=== PATIENT | female | born 1985 | race Caucasian/White ===

== ENCOUNTER 2019-04-08 12:15 | Emergency (ER) | payer SELFPAY ==
--- NOTE | 2019-04-08 12:37 | EDM.PDOC ---
ED HPI GENERAL MEDICAL PROBLEM - General Chief Complaint: General Stated Complaint: FLU SYMPTOMS Time Seen by Provider: 04/08/19 12:19 Source of Information: Reports: Patient History Limitations: Reports: No Limitations - History of Present Illness INITIAL COMMENTS - FREE TEXT/NARRATIVE: HISTORY AND PHYSICAL: History of present illness: Patient is a 33-year-old female who presents to the ED today with concern of sore throat and cough x2 to 3 days. Patient states that her and her son have both had influenza and strep throat over the past 2 weeks. Patient denies any health history or any other symptoms or concerns. Patient denies fever, chills, chest pain, shortness of breath. Denies headache, neck stiff ness, change in vision, syncope, or near syncope. Denies nausea, vomiting, abdominal pain, diarrhea, constipation, or dysuria. Has not noted any blood in urine or stool. Patient has been eating and drinking appropriately. Review of systems: As per history of present illness and below otherwise all systems reviewed and negative. Past medical history: As per history of present illness and as reviewed below otherwise noncontributory. Surgical history: As per history of present illness and as reviewed below otherwise noncontributory. Social history: See social history for further information Family history: As per history of present illness and as reviewed below otherwise noncontributory. Physical exam: General: Patient is alert, oriented, and in no acute distress. Patient sitting comfortably on exam table. HEENT: Atraumatic, normocephalic, pupils equal and reactive bilaterally, negative for conjunctival pallor or scleral icterus, mucous membranes moist, TMs normal bilaterally, throat is mildly erythematous without exudate, tonsils equal and uvula midline, neck supple, nontender, trachea midline. No drooling or trismus noted. No meningeal signs. No hot potato voice noted. Lungs: Clear to auscultation, breath sounds equal bilaterally, chest nontender. Heart: S1S2, regular rate and rhythm without overt murmur Abdomen: Soft, nondistended, nontender. Negative for masses or hepatosplenomegaly. Negative for costovertebral tenderness. Pelvis: Stable nontender. Genitourinary: Deferred. Rectal: Deferred. Skin: Intact, warm, dry. No lesions or rashes noted. Extremities: Atraumatic, negative for cords or calf pain. Neurovascular unremarkable. Neuro: Awake, alert, oriented. Cranial nerves II through XII unremarkable. Cerebellum unremarkable. Motor and sensory unremarkable throughout. Exam nonfocal. Notes: Discussed importance for follow-up with primary care provider. Voices understanding and is agreeable to plan of care. Denies any further questions or concerns at this time. Diagnostics: Influenza Strep Therapeutics: None Prescription: None Impression: Flu-like symptoms Pharyngitis Plan: 1. You can use ibuprofen as directed for pain and discomfort. 2. Follow-up with your primary care provider as discussed. Return to the ED as needed and as discussed. Definitive disposition and diagnosis as appropriate pending reevaluation and review of above. Throat Pain Score (Numeric/FACES): 6 - Related Data Allergies Allergy/AdvReac Type Severity Reaction Status Date / Time acetaminophen [From Tylenol] Allergy Anaphylactic Verified 04/08/19 12:26 Shock Home Meds: Home Meds . [No Known Home Meds] 04/08/19 [History] Past Medical History - Infectious Disease History Infectious Disease History: Reports: Chicken Pox - Past Surgical History GI Surgical History: Reports: Cholecystectomy Female Surgical History: Reports: Section Social & Family History - Family History Family Medical History: Noncontributory - Tobacco Use Smoking Status *Q: Never Smoker - Caffeine Use Caffeine Use: Reports: Coffee, Tea - Recreational Drug Use Recreational Drug Use: No ED ROS GENERAL - Review of Systems Review Of Systems: Comprehensive ROS is negative, except as noted in HPI. ED EXAM, GENERAL - Physical Exam Exam: See Below (see dictation) Course - Vital Signs Last Recorded V/S: Last Vital Signs Temp Pulse 77 04/08/19 12:27 Resp 17 04/08/19 12:27 BP Pulse Ox 96 04/08/19 12:27 - Orders/Labs/Meds Orders: Active Orders 24 hr Category Date Time Status CULTURE STREP A CONFIRMATION [] Stat Lab 04/08/19 12:30 Results STREP SCRN A RAPID W CULT CONF [] Stat Lab 04/08/19 12:30 Results Departure - Departure Time of Disposition: 13:42 Disposition: Home, Self-Care 01 Clinical Impression: Flu-like symptoms Pharyngitis Qualifiers: Pharyngitis/tonsillitis etiology: unspecified etiology Qualified Code(s): J02.9 - Acute pharyngitis, unspecified - Discharge Information Referrals: Maninder Summers NP [Primary Care Provider] - Forms: ED Department Discharge Additional Instructions: The following information is given to patients seen in the emergency department who are being discharged to home. This information is to outline your options for follow-up care. We provide all patients seen in our emergency department with a follow-up referral. The need for follow-up, as well as the timing and circumstances, are variable depending upon the specifics of your emergency department visit. If you don't have a primary care physician on staff, we will provide you with a referral. We always advise you to contact your personal physician following an emergency department visit to inform them of the circumstance of the visit and for follow-up with them and/or the need for any referrals to a consulting specialist. The emergency department will also refer you to a specialist when appropriate. This referral assures that you have the opportunity for follow-up care with a specialist. All of these measure are taken in an effort to provide you with optimal care, which includes your follow-up. Under all circumstances we always encourage you to contact your private physician who remains a resource for coordinating your care. When calling for follow-up care, please make the office aware that this follow-up is from your recent emergency room visit. If for any reason you are refused follow-up, please contact the [facility] Emergency Department at and asked to speak to the emergency department charge nurse. [facility] [address] [place] [id number] [place] [address] 1. You can use ibuprofen as directed for pain and discomfort. 2. Follow-up with your primary care provider as discussed. Return to the ED as needed and as discussed. Sepsis Event Note - Evaluation Sepsis Screening Result: No Definite Risk - Focused Exam Vital Signs: Vital Signs Pulse Resp Pulse Ox 04/08/19 12:27 77 17 96 Date Exam was Performed: 04/08/19 Time Exam was Performed: 13:41 - My Orders Last 24 Hours: My Active Orders 04/08/19 12:30 CULTURE STREP A CONFIRMATION [RM] Stat STREP SCRN A RAPID W CULT CONF [RM] Stat - Assessment/Plan Last 24 Hours: My Active Orders 04/08/19 12:30 CULTURE STREP A CONFIRMATION [RM] Stat STREP SCRN A RAPID W CULT CONF [] Stat
== END 2019-04-08 13:57 | disposition home or self-care (01) ==
LOC: MW.ED 12:15
DX: J02.9 Acute pharyngitis, unspecified (principal); Z88.6 Allergy status to analgesic agent
CPT/HCPCS: 87081; 87804; 87880-QW; 99283

== ENCOUNTER 2019-05-28 17:23 | Emergency (ER) | payer SELFPAY ==
[2019-05-28] MEDS ORDERED: methylPREDNISolone Sodium Succinate 125 MG/2 ML SDV IM ONE (17:42)
--- NOTE | 2019-05-28 17:45 | EDM.PDOC ---
ED HPI GENERAL MEDICAL PROBLEM - General Chief Complaint: Eye Problems Stated Complaint: RIGHT EYE SWOLLEN Time Seen by Provider: 05/28/19 17:42 Source of Information: Reports: Patient History Limitations: Reports: No Limitations - History of Present Illness INITIAL COMMENTS - FREE TEXT/NARRATIVE: HISTORY AND PHYSICAL: History of present illness: Patient is a 33-year-old female who presents to the emergency room with complaints of soft tissue swelling around her right eyebrow. Patient states she was getting her eyebrows waxed and shortly after noticed some soft tissue swelling at the waxing site. Patient is getting in 2 hours and is concerned she is having an allergic reaction to the wax. Review of systems: As per history of present illness and below otherwise all systems reviewed and negative. Past medical history: As per history of present illness and as reviewed below otherwise noncontributory. Surgical history: As per history of present illness and as reviewed below otherwise noncontributory. Social history: See social history for further information Family history: As per history of present illness and as reviewed below otherwise noncontributory. Physical exam: General: Well developed and well nourished 33 year old female. Alert and appropriate for age. Nontoxic-appearing and in no acute distress. HEENT: Atraumatic, normocephalic, pupils equal and reactive bilaterally, negative for conjunctival pallor or scleral icterus, mucous membranes moist, TMs normal bilaterally, throat clear, neck supple, nontender, trachea midline. No drooling or trismus noted. No meningeal signs. No hot potato voice noted. Lungs: Clear to auscultation, breath sounds equal bilaterally, chest nontender. Heart: S1S2, regular rate and rhythm without overt murmur Abdomen: Soft, nondistended, nontender. Skin: Soft tissue swelling and redness around the right eyebrow. Remaining skin is intact, warm, dry. No lesions or rashes noted. Extremities: Atraumatic, moves all extremities per self without difficulty or deficits, negative for cords or calf pain. Neurovascular unremarkable. Neuro: Awake, alert, oriented. Cranial nerves II through XII unremarkable. Cerebellum unremarkable. Motor and sensory unremarkable throughout. Exam nonfocal. Notes: Patient has no facial muscle/nerve abnormalities. Appears to have a contact reaction to the wax. Supportive care measures were reviewed and discussed. Voices understanding and is agreeable to plan of care. Denies any further questions or concerns at this time. Diagnostics: None Therapeutics: Solumedrol IM Prescription: None Impression: Contact dermatitis Plan: 1. While symptomatic continue to routinely take Benadryl 50mg every 4-6 hours. Cool compresses may help with swelling. 2. You may use topical calamine lotion, cool tempid oatmeal baths, Aveeno bath/ lotions. 3. Please follow up with your Primary care doctor as we discussed. Return to the ED as needed and as discussed. Definitive disposition and diagnosis as appropriate pending reevaluation and review of above. right eyelid Pain Score (Numeric/FACES): 4 - Related Data Allergies Allergy/AdvReac Type Severity Reaction Status Date / Time acetaminophen [From Tylenol] Allergy Anaphylactic Verified 05/28/19 17:36 Shock Home Meds: Home Meds . [No Known Home Meds] 04/08/19 [History] Past Medical History - Past Health History Medical/Surgical History: Denies Medical/Surgical History - Infectious Disease History Infectious Disease History: Reports: Chicken Pox - Past Surgical History GI Surgical History: Reports: Cholecystectomy Female Surgical History: Reports: Section Social & Family History - Family History Family Medical History: Noncontributory - Tobacco Use Smoking Status *Q: Never Smoker - Caffeine Use Caffeine Use: Reports: Coffee, Tea - Recreational Drug Use Recreational Drug Use: No ED ROS GENERAL - Review of Systems Review Of Systems: Comprehensive ROS is negative, except as noted in HPI. ED EXAM GENERAL W FULL EYE - Physical Exam Exam: See Below (See dictation) Course - Vital Signs Last Recorded V/S: Last Vital Signs Temp 98.9 F 05/28/19 17:34 Pulse 94 05/28/19 17:34 Resp 18 05/28/19 17:34 BP 120/91 H 05/28/19 17:34 Pulse Ox 96 05/28/19 17:34 - Orders/Labs/Meds Meds: Medications Discontinued Medications Generic Name Dose Route Start Last Admin Trade Name Freq PRN Reason Stop Dose Admin Methylprednisolone Sodium Succinate 125 mg 05/28/19 17:42 05/28/19 17:48 Solu-Medrol IM 05/28/19 17:43 125 mg ONETIME ONE Administration Departure - Departure Time of Disposition: 17:44 Disposition: Home, Self-Care 01 Clinical Impression: Contact dermatitis Qualifiers: Contact dermatitis type: irritant Contact dermatitis trigger: other trigger Qualified Code(s): L24.89 - Irritant contact dermatitis due to other agents; L24.8 - Irritant contact dermatitis due to other agents - Discharge Information Instructions: Contact Dermatitis, [id number] Referrals: Maninder Summers NP [Primary Care Provider] - Forms: ED Department Discharge Additional Instructions: The following information is given to patients seen in the emergency department who are being discharged to home. This information is to outline your options for follow-up care. We provide all patients seen in our emergency department with a follow-up referral. The need for follow-up, as well as the timing and circumstances, are variable depending upon the specifics of your emergency department visit. If you don't have a primary care physician on staff, we will provide you with a referral. We always advise you to contact your personal physician following an emergency department visit to inform them of the circumstance of the visit and for follow-up with them and/or the need for any referrals to a consulting specialist. The emergency department will also refer you to a specialist when appropriate. This referral assures that you have the opportunity for follow-up care with a specialist. All of these measure are taken in an effort to provide you with optimal care, which includes your follow-up. Under all circumstances we always encourage you to contact your private physician who remains a resource for coordinating your care. When calling for follow-up care, please make the office aware that this follow-up is from your recent emergency room visit. If for any reason you are refused follow-up, please contact the [facility] Emergency Department at and asked to speak to the emergency department charge nurse. [facility] [address] [place] [address] [id number] [address] [address] 1. While symptomatic continue to routinely take Benadryl 50 mg every 4-6 hours. Cool compresses may help with swelling. 2. You may use topical calamine lotion, cool tempid oatmeal baths, Aveeno bath/ lotions. 3. Please follow up with your Primary care doctor as we discussed. Return to the ED as needed and as discussed. Sepsis Event Note - Evaluation Sepsis Screening Result: No Definite Risk - Focused Exam Vital Signs: Vital Signs Temp Pulse Resp BP Pulse Ox 05/28/19 17:34 98.9 F 94 18 120/91 H 96 Date Exam was Performed: 05/28/19 Time Exam was Performed: 17:53
== END 2019-05-28 17:55 | disposition home or self-care (01) ==
LOC: MW.ED 17:23
DX: L24.89 Irritant contact dermatitis due to other agents (principal); Z88.6 Allergy status to analgesic agent
CPT/HCPCS: 96372; 99283; J2930; 99282

== ENCOUNTER 2019-06-03 12:58 | Inpatient (IN) | payer OTHER ==
[2019-06-03] MEDS ORDERED: Sodium Chloride 0.9% 1,000 ML IV ONE (13:05)
[2019-06-03] MEDS: oxyCODONE 5 MG Tab PO PRN ×2 (13:57→20:55)
[2019-06-03] MEDS ORDERED: cefTRIAXone 1 GM in Premix Bag 1 BAG IV SCH (14:00)
[2019-06-03] MEDS: Ibuprofen 400 MG Tab PO PRN (14:25)
--- NOTE | 2019-06-03 15:45 | PCM.HP.2 ---
H&P History of Present Illness - General Date of Service: 06/03/19 Admit Problem/Dx: Admission Diagnosis/Problem Admission Diagnosis/Problem Pyelonephritis - History of Present Illness Initial Comments - Free Text/Narative: 33 yo female who presents with one day history of fevers, chills, dysuria and bilateral flank pain. She was seen in [facility]'s clinic and noted to have a UTI on UA with leukocytosis of 15,000. A direct admission was arranged. She reports a history of pyelonephritis six years ago while she was . - Related Data Allergies/Adverse Reactions: Allergies Allergy/AdvReac Type Severity Reaction Status Date / Time acetaminophen [From Tylenol] Allergy Anaphylactic Verified 06/03/19 13:24 Shock Home Medications: Home Meds . [No Known Home Meds] 04/08/19 [History] Past Medical History - Past Health History Medical/Surgical History: Denies Medical/Surgical History - Infectious Disease History Infectious Disease History: Reports: Chicken Pox - Past Surgical History GI Surgical History: Reports: Cholecystectomy Female Surgical History: Reports: Section Social & Family History - Family History Family Medical History: Noncontributory - Tobacco Use Smoking Status *Q: Never Smoker - Caffeine Use Caffeine Use: Reports: None - Recreational Drug Use Recreational Drug Use: No H&P Review of Systems - Review of Systems: Review Of Systems: Comprehensive ROS is negative, except as noted in HPI. Exam - Exam Exam: See Below - Vital Signs Vital Signs: Last Vital Signs Temp 38.7 C H 06/03/19 14:25 Pulse 82 06/03/19 13:25 Resp 18 06/03/19 13:25 BP 133/68 06/03/19 13:25 Pulse Ox 98 06/03/19 13:25 Weight: 99 kg - Exam General: Alert, Oriented HEENT: Conjunctiva Clear, Mucosa Moist & Jeddo Lungs: Clear to Auscultation, Normal Respiratory Effort Cardiovascular: Regular Rate, Regular Rhythm GI/Abdominal Exam: Normal Bowel Sounds, Soft, No Distention Back Exam: CVA Tenderness (L), CVA Tenderness (R) Extremities: Non-Tender, No Pedal Edema Skin: Warm, Dry, Intact Neurological: No: Focal Deficit - Patient Data Lab Results Last 24 hrs: Laboratory Results - last 24 hr 06/03/19 06/03/19 Range/Units 12:12 13:43 Lactate 1.2 (0.20-2.00) mmol/L Urine HCG, Qual NEGATIVE (NEGATIVE) [place] Results Last 24 hrs: Microbiology 06/03/19 13:43 Anaerobic Blood Culture - Final Blood - Venous - Lab Draw 06/03/19 12:12 Anaerobic Blood Culture - Final Blood - Venous Sepsis Event Note - Focused Exam Vital Signs: Vital Signs Temp Temp Pulse Resp BP Pulse Ox 06/03/19 14:25 38.7 C H 06/03/19 13:25 37.7 C 82 18 133/68 98 Date Exam was Performed: 06/03/19 Time Exam was Performed: 15:40 Problem List Initiated/Reviewed/Updated: Yes Orders Last 24hrs: Active Orders 24 hr Category Date Time Status Patient Status [ADT] Routine ADT 06/03/19 13:42 Active Antiembolic Devices [RC] PER UNIT ROUTINE Care 06/03/19 15:39 Ordered Influenza Vaccine Charge [RC] .DISCHARGE Care 06/03/19 14:14 Active Oxygen Therapy [RC] PRN Care 06/03/19 15:39 Ordered Up ad Ariela [RC] ASDIRECTED Care 06/03/19 15:38 Ordered VTE/DVT Education [RC] PER UNIT ROUTINE Care 06/03/19 15:39 Ordered Vital Signs [RC] Q4H Care 06/03/19 15:39 Ordered Regular Diet [DIET] Diet 06/03/19 Dinner Active Retroperitoneal Ltd [US] Routine Exams 06/03/19 15:40 Ordered BASIC METABOLIC PANEL,BMP [CHEM] AM Lab 06/04/19 05:11 Ordered CBC WITH AUTO DIFF [HEME] AM Lab 06/04/19 05:11 Ordered CULTURE BLOOD [BC] Stat Lab 06/03/19 12:12 Results CULTURE BLOOD [BC] Stat Lab 06/03/19 13:43 Results FLU Vacc [id number](6MOS+)/PF [Fluzone Quad Med 06/04/19 14:30 Once Syringe] 60 mcg IM .ONCE ONE Ibuprofen [Motrin] Med 06/03/19 13:42 Active 400 mg PO Q6H PRN Ondansetron [Zofran] Med 06/03/19 15:38 Ordered 4 mg IVPUSH Q4H PRN Sodium Chloride 0.9% [Normal Saline] 1,000 ml Med 06/03/19 13:15 Active IV ASDIRECTED cefTRIAXone [Rocephin in Dextrose,Iso-Osm 1 GM/50 ML] 1 Med 06/03/19 14:00 Active gm Premix Bag 1 bag IV Q24H oxyCODONE Med 06/03/19 13:44 Active 5 mg PO Q4H PRN Blood Culture x2 Reflex Set [OM.PC] Stat Oth 06/03/19 13:08 Ordered Sequential Compression Device [OM.PC] Per Unit Routine Oth 06/03/19 15:39 Ordered Resuscitation Status Routine Resus Stat 06/03/19 15:38 Ordered Medication Orders Ceftriaxone Sodium/Dextrose 1 (gm/ Premix) 50 mls @ 100 mls/hr IV Q24H NISHI Last Admin: 06/03/19 13:59 Dose: 100 mls/hr Sodium Chloride (Normal Saline) 1,000 mls @ 125 mls/hr IV ASDIRECTED NISHI Ibuprofen (Motrin) 400 mg PO Q6H PRN PRN Reason: Pain Last Admin: 06/03/19 14:25 Dose: 400 mg Influenza Virus Vaccine (Fluzone Quad [id number] Syringe) 60 mcg IM .ONCE ONE Stop: 06/04/19 14:31 Ondansetron HCl (Zofran) 4 mg IVPUSH Q4H PRN PRN Reason: Nausea Oxycodone HCl (Oxycodone) 5 mg PO Q4H PRN PRN Reason: Pain Last Admin: 06/03/19 13:57 Dose: 5 mg Assessment/Plan Comment:: 33 yo female admitted for pyelonephritis with sepsis. Patient has received IV fluids and has improvement in her heart rate. Patient is feeling better. We will continue IV fluid resuscitation. We will treat her pyelonephritis with Rocephin. Retroperitoneal ultrasound has been ordered. Blood and urine cultures pending.
--- NOTE | 2019-06-03 17:20 | US ---
Renal ultrasound: Multiple real-time images of the kidneys were obtained. Comparison: No previous imaging. Findings: Right kidney shows mild hydronephrosis with dilatation of the collecting system. Left kidney appears within normal limits. Large fluid-filled mass which appears complicated arises out of the pelvis. This abnormality measures at least 21 cm x 13.1 cm. Mural nodules are seen within this abnormality. Findings most likely arises in the right ovary. Left ovary is seen which appears separate from this finding. Measurements: Right kidney length: 11.6 cm Left kidney length: 10.4 cm Impression: 1. Mild right-sided hydronephrosis. This finding is most likely due to compression of the right ureter from a large fluid-filled mass arising out of the pelvis extending into the abdomen. Mass measures at least 21 cm x 13.1 cm. This fluid-filled mass is complicated with mural nodules. Ovarian carcinoma needs to be excluded. 2. No ascites seen at this time. 3. Left kidney appears unremarkable. Left ovary appears within normal limits. Diagnostic code #9 Study was dictated in [place] Standard Time
[2019-06-03] MEDS: Sodium Chloride 0.9% 1,000 ML IV SCH (19:26)
--- NOTE | 2019-06-03 19:45 | PCM.SN ---
- Free Text/Narrative Note: Retroperitoneal showed mild hydronephrosis and possible compression of right ureter due to large fluid filled mass. CT scan of abdomen and pelvis is ordered. I have called Dr. Diaz who will look at CT scan to see if any intervention is needed tonight. I informed patient of results of ultrasound and she is agreeable to current plan. Will treat with meropenem due to findings of possible obstruction.
[2019-06-03] MEDS ORDERED: Meropenem Premix 50 ML IV ONE (20:53)
[2019-06-03] MEDS: Meropenem 1 GM in Sodium Chloride 0.9% 100 ML IV SCH ×2 (20:57→21:05)
--- NOTE | 2019-06-03 20:58 | CT ---
CT abdomen and pelvis Technique: Multiple axial sections were obtained from above the dome of the diaphragm inferiorly through the pubic symphysis. Small amount of contrast is seen within the collecting systems of both kidneys. No oral contrast is noted. Findings: Dilated right renal pelvis and proximal right ureter are seen. Dilatation stops where the ureter crosses the psoas muscle which likely relates to mass-effect from the fluid-filled mass upon the right ureter. No left-sided ureteral dilatation is seen. Visualized lung bases show nothing acute. Liver shows no focal parenchymal abnormality. Surgical clips are seen from prior cholecystectomy. Small hiatal hernia seen. Spleen appears normal. Adrenal glands show no nodule. Pancreas shows no discrete abnormality. Aorta shows no aneurysm. Large fluid-filled mass is seen which arises from the pelvis directly above the uterus and extends in a craniocaudal measurement of 22.1 cm. Greatest AP dimension is 12.8 cm in greatest transverse dimension is 20.5 cm. No additional pelvic abnormality is appreciated. No bowel dilatation is seen. Appendix not visualized with certainty. No ascites is seen. No inflammatory change is noted. Bone window settings were reviewed which appear within normal limits for the patient's age. Small fat-containing umbilical hernia is noted. Impression: 1. Large fluid-filled mass arising out of the pelvis and extending into the abdomen. Measurements as noted above. 2. Mildly dilated right renal pelvis and right proximal ureter which stops where the ureter crosses the psoas muscle which is caused by obstruction from the fluid-filled mass. 3. Other findings believed to be incidental as noted above. Note: As mentioned on ultrasound report, ovarian carcinoma needs to be excluded as this cyst is slightly complicated. Diagnostic code #9 This report was dictated in [place] Standard Time
[2019-06-03] MEDS ORDERED: Ketorolac 30 MG/ML SDV IVPUSH ONE (22:13)
[2019-06-03] MEDS: Pantoprazole 40 MG in Sodium Chloride 0.9% 10 ML IV SCH (22:19)
--- NOTE | 2019-06-03 23:07 | CT ---
INDICATION: Headache. Blurred vision TECHNIQUE: CT head without contrast. COMPARISON: None available FINDINGS: The study is mildly limited by artifact. The ventricles and sulci are within normal limits. There is no mass effect or midline shift. There is no loss of ma-white differentiation. There is an ill-defined area of increased attenuation in the medial right cerebellum on image 19 which could be artifactual. There is no evidence of a gross acute extra-axial hemorrhage. No acute calvarial fracture is seen. There is a mucosal retention cyst or polyp in the lateral recess of the left sphenoid sinus. The mastoid air cells are clear. The visualized orbits are within normal limits. IMPRESSION: No evidence of a gross acute extra-axial hemorrhage, mass effect or loss of ma-white differentiation. An ill-defined focus of increased attenuation in the medial right cerebellum could be artifactual, however, consider a short-term follow-up study in 4-8 hours, if clinically indicated. Dictated by Lito Dietz MD @ 06/03/2019 11:06:29 PM Please note that all CT scans at this facility use dose modulation, iterative reconstruction, and/or weight-based dosing when appropriate to reduce radiation dose to as low as reasonably achievable. Dictated by: Lito Dietz MD @ 06/03/2019 23:06:39 (Electronically Signed)
--- NOTE | 2019-06-04 03:11 | CONS ---
DATE OF CONSULTATION: DATE OF : 1985 PRIMARY CARE PHYSICIAN: None PCP HISTORY OF PRESENT ILLNESS: A 33-year-old. She was admitted to the hospital today. Primary complaint, fever, abdominal pain, back pain. Her temperature at 2:25 p.m. was 101.7. Her UA showed 50 to 60 white blood cells per high-power field, 3+ [place] [address]. Blood pressure is normal. Lactic acid is 1.2. PHYSICAL EXAMINATION: GENERAL: She is alert. She is oriented. ABDOMEN: Distended. I reviewed her CT scan which shows 21 cm right ovarian cystic mass with nodules inside, suggestive of malignancy, that has compressed the right ureter to cause right-sided hydronephrosis and hydroureter. With the CT scan, she received some dye. There was prompt excretion of the dye on both sides, equal in distribution. Abdominal exam shows distended abdomen. The mass is palpable in the abdomen. DIAGNOSES: Right large ovarian cyst, compression of the left ureter plus left-sided hydronephrosis, and urinary tract infection. RECOMMENDATION: She needs to be transferred to see [facility] Oncology. be done tomorrow. She will need surgery and she will also need right ureteral stent if the surgery is not within the next 3, maybe 4 days. MONA / ARACELY /[id number]
[2019-06-04] MEDS ORDERED: Meropenem Premix 50 ML IV ONE (04:15)
[2019-06-04] MEDS: oxyCODONE 5 MG Tab PO PRN (04:22)
[2019-06-04] MEDS: Meropenem 1 GM in Sodium Chloride 0.9% 100 ML IV SCH ×2 (04:23→15:26)
[2019-06-04] MEDS: Sodium Chloride 0.9% 1,000 ML IV SCH (04:57)
[2019-06-04] MEDS: Ondansetron 4 MG/2 ML SDV IVPUSH PRN ×2 (05:04→09:21)
[2019-06-04 06:40] LABS: BLOOD UREA NITROGEN,BUN 12 mg/dL (7.0-18.0); CARBON DIOXIDE,CO2 24.6 mmol/L (21.0-32.0); CHLORIDE,CL 104 mmol/L (98-107); GLUCOSE RANDOM 91 mg/dL (74-106); POTASSIUM,K 3.9 mmol/L (3.5-5.1); SODIUM,NA 138 mmol/L (136-145)
[2019-06-04] MEDS: Ibuprofen 400 MG Tab PO PRN (07:38)
--- NOTE | 2019-06-04 09:05 | PCM.DCSUM1 ---
Discharge Summary - Hospital Course Free Text/Narrative:: 33 y/o female who presented to her PCP's clinic for back pain and found to have a UTI with WBC 15K. Admitted for pyelonephritis started on Meropenem and then found to have an ovarian cyst measuring approximately 22cm x 20 cm with compression of right ureter causing right hydronephrosis. Consulted with Dr. Diaz, Urology who recommended transferring for further evaluation of pelvic mass and possible stenting of right ureter due to hydronephrosis. In addition, she was complaining of blurry vision and CT head was performed which was negative for masses but there was an area of attenuation on right cerebellum believed to be artifact. Repeat CT head was negative for masses and previous artifact was not seen. Forwarded imaging to [facility]. Spoke with Dr. Tovar, JULIAN about the case and accepted the patient on 06/04/19. Dr. Rebolledo was also made aware of the patient. - Discharge Data Discharge Date: 06/04/19 Discharge Disposition: DC/Tfer to Acute Hospital 02 Condition: Good - Referral to Home Health Primary Care Physician: PCP None - Discharge Plan Home Medications: Home Meds . [No Known Home Meds] 04/08/19 [History] Referrals: Mana Babcock, LENNY [Nurse Practitioner] - - Discharge Summary/Plan Comment DC Time >30 min.: No - Patient Data Vitals - Most Recent: Last Vital Signs Temp 36.7 C 06/04/19 08:00 Pulse 84 06/04/19 08:00 Resp 15 06/04/19 08:00 BP 109/56 L 06/04/19 08:00 Pulse Ox 97 06/04/19 04:00 Weight - Most Recent: 99 kg I&O - Last 24 hours: Intake & Output 06/03/19 06/04/19 06/04/19 22:59 06:59 14:59 Intake Total 200 2286 Output Total 400 1100 Balance -200 1186 Lab Results - Last 24 hrs: Laboratory Results - last 24 hr 06/03/19 06/03/19 06/04/19 Range/Units 12:12 13:43 05:53 WBC 5.84 (4.0-11.0) K/uL RBC 4.58 (4.30-5.90) M/uL Hgb 12.7 (12.0-16.0) g/dL Hct 38.9 (36.0-46.0) % MCV 84.9 (80.0-98.0) fL MCH 27.7 (27.0-32.0) pg MCHC 32.6 (31.0-37.0) g/dL RDW Std Deviation 44.0 (28.0-62.0) fl RDW Coeff of Codi 15 (11.0-15.0) % Plt Count 184 (150-400) K/uL MPV 11.60 (7.40-12.00) fL Neut % (Auto) 78.1 (48.0-80.0) % Lymph % (Auto) 11.6 L (16.0-40.0) % [place] % (Auto) 9.8 (0.0-15.0) % Eos % (Auto) 0.2 (0.0-7.0) % Baso % (Auto) 0.3 (0.0-1.5) % Neut # (Auto) 4.6 (1.4-5.7) K/uL Lymph # (Auto) 0.7 (0.6-2.4) K/uL [place] # (Auto) 0.6 (0.0-0.8) K/uL Eos # (Auto) 0.0 (0.0-0.7) K/uL Baso # (Auto) 0.0 (0.0-0.1) K/uL Lactate 1.2 (0.20-2.00) mmol/L Sodium (136-145) mmol/L Potassium (3.5-5.1) mmol/L Chloride (98-107) mmol/L Carbon Dioxide (21.0-32.0) mmol/L BUN (7.0-18.0) mg/dL Creatinine (0.6-1.0) mg/dL Est Cr Clr Drug Dosing mL/min Estimated GFR (MDRD) ml/min Glucose (74-106) mg/dL Calcium (8.5-10.1) mg/dL CA 125 Antigen Urine HCG, Qual NEGATIVE (NEGATIVE) 06/04/19 Range/Units 05:53 WBC (4.0-11.0) K/uL RBC (4.30-5.90) M/uL Hgb (12.0-16.0) g/dL Hct (36.0-46.0) % MCV (80.0-98.0) fL MCH (27.0-32.0) pg MCHC (31.0-37.0) g/dL RDW Std Deviation (28.0-62.0) fl RDW Coeff of Codi (11.0-15.0) % Plt Count (150-400) K/uL MPV (7.40-12.00) fL Neut % (Auto) (48.0-80.0) % Lymph % (Auto) (16.0-40.0) % [place] % (Auto) (0.0-15.0) % Eos % (Auto) (0.0-7.0) % Baso % (Auto) (0.0-1.5) % Neut # (Auto) (1.4-5.7) K/uL Lymph # (Auto) (0.6-2.4) K/uL [place] # (Auto) (0.0-0.8) K/uL Eos # (Auto) (0.0-0.7) K/uL Baso # (Auto) (0.0-0.1) K/uL Lactate (0.20-2.00) mmol/L Sodium 138 (136-145) mmol/L Potassium 3.9 (3.5-5.1) mmol/L Chloride 104 (98-107) mmol/L Carbon Dioxide 24.6 (21.0-32.0) mmol/L BUN 12 (7.0-18.0) mg/dL Creatinine 0.8 (0.6-1.0) mg/dL Est Cr Clr Drug Dosing 95.45 mL/min Estimated GFR (MDRD) > 60.0 ml/min Glucose 91 (74-106) mg/dL Calcium 8.1 L (8.5-10.1) mg/dL CA 125 Antigen Cancelled Urine HCG, Qual (NEGATIVE) TERA Results - Last 24 hrs: Microbiology 06/03/19 13:43 Anaerobic Blood Culture - Final Blood - Venous - Lab Draw 06/03/19 12:12 Anaerobic Blood Culture - Final Blood - Venous Med Orders - Current: Current Medications Sodium Chloride (Normal Saline) 1,000 mls @ 125 mls/hr IV ASDIRECTED NISHI Last Admin: 06/04/19 04:57 Dose: 125 mls/hr Meropenem 1 gm/ Sodium (Chloride) 100 mls @ 200 mls/hr IV Q8H [facility] Last Admin: 06/04/19 04:23 Dose: Not Given Pantoprazole Sodium 40 mg/ (Sodium Chloride) 10 mls @ 300 mls/hr IV DAILY NISHI Last Admin: 06/03/19 22:19 Dose: 300 mls/hr Ibuprofen (Motrin) 400 mg PO Q6H PRN PRN Reason: Pain Last Admin: 06/04/19 07:38 Dose: 400 mg Influenza Virus Vaccine (Fluzone Quad [id number] Syringe) 60 mcg IM .ONCE ONE Stop: 06/04/19 14:31 Ondansetron HCl (Zofran) 4 mg IVPUSH Q4H PRN PRN Reason: Nausea Last Admin: 06/04/19 05:04 Dose: 4 mg Oxycodone HCl (Oxycodone) 5 mg PO Q4H PRN PRN Reason: Pain Last Admin: 06/04/19 04:22 Dose: 5 mg Discontinued Medications Ceftriaxone Sodium/Dextrose 1 (gm/ Premix) 50 mls @ 100 mls/hr IV Q24H [facility] Last Admin: 06/03/19 13:59 Dose: 100 mls/hr Sodium Chloride (Normal Saline) 1,000 mls @ 999 mls/hr IV .Bolus ONE Stop: 06/03/19 14:05 Last Admin: 06/03/19 14:04 Dose: 200 mls/hr Meropenem/Sodium Chloride (Meropenem) Confirm Administered Dose 50 mls @ as directed IV .STK-MED ONE Stop: 06/03/19 20:54 Last Admin: 06/03/19 21:04 Dose: 100 mls/hr Meropenem/Sodium Chloride (Meropenem) Confirm Administered Dose 50 mls @ as directed IV .STK-MED ONE Stop: 06/04/19 04:16 Last Admin: 06/04/19 04:23 Dose: 100 mls/hr Influenza Virus Vaccine (Pharmacy To Dose - Influenza Vaccine) 1 each IM ONETIME ONE Stop: 06/03/19 14:15 Last Admin: 06/03/19 16:00 Dose: Not Given Ketorolac Tromethamine (Toradol) 30 mg IVPUSH ONETIME ONE Stop: 06/03/19 22:14 Last Admin: 06/03/19 22:21 Dose: 30 mg
[2019-06-04] MEDS ORDERED: Metoclopramide 10 MG/2 ML SDV IVPUSH STA (09:14)
[2019-06-04] MEDS ORDERED: diphenhydrAMINE 50 MG/ML SDV IVPUSH ONE (09:14)
[2019-06-04] MEDS ORDERED: Ketorolac 15 MG/ML SDV IVPUSH STA (09:14)
[2019-06-04] MEDS: Pantoprazole 40 MG in Sodium Chloride 0.9% 10 ML IV SCH (09:20)
--- NOTE | 2019-06-04 11:07 | CT ---
Head CT Technique: Multiple axial sections through the brain were obtained. Intravenous contrast was not utilized. Comparison: Prior head CT study of 06/03/19 Findings: Ventricles along with basal cisterns and sulci over the convexities are within normal limits for the patient's age. No abnormal parenchymal densities are seen. No evidence of intracranial hemorrhage. No midline shift or mass effect is appreciated. Bone window settings were reviewed. Opacification is seen within the left side of the sphenoid sinus either due to retention cyst or focal mucosal thickening. No acute paranasal sinus findings are seen within the visualized sinuses. Mastoid sinuses show nothing acute. No acute calvarial abnormality is appreciated. Impression: 1. Questioned finding within the right cerebellum on prior study does not persist on current CT exam and therefore was artifact on previous study. 2. No acute intracranial abnormality is appreciated. Diagnostic code #2 This report was dictated in [place] Standard Time
[2019-06-04] MEDS ORDERED: HYDROmorphone 2 MG Tab PO STA (11:49)
[2019-06-04] MEDS ORDERED: FLU Vacc QS2019-20(6MOS+)/PF 60 MCG/0.5 ML SYRINGE IM ONE (14:30)
== END 2019-06-04 11:35 | DRG 690 ==
LOC: UNDOADMIN 12:58 → MW.MS 12:58
PROVIDERS: ADMIT Internal Medicine; ATTEND Internal Medicine
DX: N12 Tubulo-interstitial nephritis, not specified as acute or chronic (principal); N13.5 Crossing vessel and stricture of ureter without hydronephrosis; N13.30 Unspecified hydronephrosis; N83.201 Unspecified ovarian cyst, right side; Z88.8 Allergy status to other drugs, medicaments and biological substances; Z90.49 Acquired absence of other specified parts of digestive tract
CPT/HCPCS: 36415; 70450; 70450-26; 74176; 74176-26; 76775; 76775-26; 80048; 81025; 83605; 85025; 87040; A9270-GY; C9113; J0696; J1200; J1885; J2185; J2405; J2765; J7030; J7050

== ENCOUNTER 2019-06-12 11:59 | Emergency (ER) | payer OTHER ==
[2019-06-12] MEDS ORDERED: HYDROmorphone 2 MG/ML Syringe IVPUSH ONE (12:23)
[2019-06-12] MEDS ORDERED: Ondansetron 4 MG/2 ML SDV IVPUSH ONE (12:23)
[2019-06-12] MEDS ORDERED: Sodium Chloride 0.9% 1,000 ML IV ONE (12:24)
--- NOTE | 2019-06-12 12:28 | EDM.PDOC ---
ED HPI GENERAL MEDICAL PROBLEM - General Chief Complaint: Abdominal Pain Stated Complaint: POST SURGERY COMPLICATIONS Time Seen by Provider: 06/12/19 12:01 Source of Information: Reports: Patient History Limitations: Reports: No Limitations - History of Present Illness INITIAL COMMENTS - FREE TEXT/NARRATIVE: HISTORY OF PRESENT ILLNESS: Patient is a 33-year-old female who presents with abdominal pain. Patient was admitted here on June 02 for pyelonephritis. During that time she had a CT performed which showed a 21 cm right ovarian cystic mass. She was then transferred to [facility] where ASSISTANT PROFESSOR OF DRAMA oncologist removed the mass which was found to be benign. Since Friday she began having abdominal pain. Saw her PCP yesterday who prescribed her antispasmodics for the pain. Pain became worse yesterday afternoon is associated with nausea and now has hematuria. She does not have any stents. Denies any dysuria. No fevers or chills. No chest pain or dyspnea. Denies any emesis. REVIEW OF SYSTEMS: Other than the symptoms associated with the present events, the following is reported with regard to recent health: General: (-) fever. HENT: (-) congestion. Respiratory: (-) cough. Cardiovascular: (-) chest pain. GI: (+) abdominal pain. : (+) urinary complaints. Musculoskeletal: (-) other aches or pains. Endocrine: (-) generalized weakness. Neurological: (-) localized weakness. Skin: (-) rash PAST MEDICAL HISTORY: reviewed as per nursing notes SOCIAL HISTORY: reviewed as per nursing notes, MEDICATIONS: Per nurse's note ALLERGIES: Per nurse's note, reviewed by me PHYSICAL EXAMINATION: GENERALIZED APPEARANCE: well developed, well nourished in moderate distress VITAL SIGNS: Per nurse's note, reviewed by me SKIN: Warm, dry; (-) cyanosis; (-) rash. HEAD: (-) scalp swelling, (-) tenderness. EYES: (-) conjunctival pallor, (-) scleral icterus. ENMT: (-) stridor; mucous membranes moist. NECK: (-) tenderness, (-) stiffness, CHEST AND RESPIRATORY: (-) rales, (-) rhonchi, (-) wheezes; breath sounds equal bilaterally. HEART AND CARDIOVASCULAR: (-) irregularity; (-) murmur, (-) gallop. ABDOMEN AND GI: Soft; incisions c/d/i. Diffuse TTP maximal in midepigastrium and lower abdomen just left of midline. (-) tenderness, (-) guarding, (-) rebound, (-) palpable masses, EXTREMITIES: (-) deformity, (-) edema. NEURO AND PSYCH: Alert. Cranial nerves grossly intact; strength symmetric. gait steady DIAGNOSTICS: CT abd/pelvis: as read by radiologist, reviewed by myself Labs ordered and reviewed US: as read by radiologist, report reviewed by myself. EMERGENCY DEPARTMENT COURSE AND TREATMENT: Patient's condition improved during Emergency Department evaluation. Given IVF, Zofran, Dilaudid. Pt states pain improved. The patient presents to the ED with abdominal pain. After history, physical exam, and diagnostic evaluation, the etiology for the pain is unclear. Laboratory data was ordered. On serial exams, there are no peritoneal signs. Abdomen is soft without guarding or rebound. I think there is a very low probability of significant abdominal pathology based on today's evaluation. CT done without contrast as both RN and anesthesia unable to perform a peripheral line and I do not feel there are any peritoneal signs nor is there need for contrast and therefore central line at this time. CT resulted as below. Ultrasound ordered which showed likely benign fluid collection. Do not suspect abscess. She is afebrile and clinically well appearing. UA noted. No CVAT. She has been on Bactrim and finished last dose today, will give additional 3 days and she will f/u with pcp on Friday.Trichomonas noted. Pt states she is monogamous with her . Denies vaginal discharge. Will start on Flagyl. Attempts made to call Dr. Johnson, but we are unable to contact. The patient is advised to have a followup tomorrow for a recheck and repeat abdominal exam. I also advised to return to the emergency department immediately for significant pain, fevers, not tolerating oral food or fluid, or new complaints. PLAN AND FOLLOW-UP: Patient received written and verbal instructions regarding this condition. Return to ED immediately with any new or worsening symptoms. Follow up to be arranged by patient with pcp in 1-2 days for further evaluation. Given discharge precautions. Patient expressed verbal understanding. abdomen Pain Score (Numeric/FACES): 5 - Related Data Allergies Allergy/AdvReac Type Severity Reaction Status Date / Time acetaminophen [From Tylenol] Allergy Anaphylactic Verified 06/12/19 12:13 Shock Home Meds: Home Meds Cyclobenzaprine [Flexeril] 10 mg PO DAILY 06/12/19 [History] Sulfamethoxazole/Trimethoprim [Bactrim Ds Tablet] 1 each PO BID #6 tablet [Rx] metroNIDAZOLE [Flagyl] 500 mg PO Q12H 7 Days #14 tab 06/12/19 [Rx] oxyCODONE HCl [Oxycodone HCl] 1 tab PO ASDIRECTED PRN 06/12/19 [History] Past Medical History - Past Health History Medical/Surgical History: Denies Medical/Surgical History - Infectious Disease History Infectious Disease History: Reports: Chicken Pox - Past Surgical History GI Surgical History: Reports: Cholecystectomy, Other (See Below) Other GI Surgeries/Procedures: Open abdomen sx - 10lb begnin tumor removed 2019 Female Surgical History: Reports: Section Social & Family History - Family History Family Medical History: Noncontributory - Tobacco Use Smoking Status *Q: Never Smoker - Caffeine Use Caffeine Use: Reports: None - Recreational Drug Use Recreational Drug Use: No ED ROS GENERAL - Review of Systems Review Of Systems: See Below (see dictation) ED EXAM, GENERAL - Physical Exam Exam: See Below (see dictation) Course - Vital Signs Last Recorded V/S: Last Vital Signs Temp 96.6 F L 06/12/19 15:17 Pulse 79 06/12/19 15:17 Resp 16 06/12/19 15:17 BP 133/72 06/12/19 15:17 Pulse Ox 96 06/12/19 15:17 - Orders/Labs/Meds Orders: Active Orders 24 hr Category Date Time Status CULTURE URINE [RM] Stat Lab 06/12/19 12:43 Received Labs: Laboratory Tests 06/12/19 06/12/19 06/12/19 Range/Units 12:36 12:36 12:43 WBC 8.36 (4.0-11.0) K/uL RBC 5.13 (4.30-5.90) M/uL Hgb 14.3 (12.0-16.0) g/dL Hct 44.0 (36.0-46.0) % MCV 85.8 (80.0-98.0) fL MCH 27.9 (27.0-32.0) pg MCHC 32.5 (31.0-37.0) g/dL RDW Std Deviation 45.7 (28.0-62.0) fl RDW Coeff of Codi 15 (11.0-15.0) % Plt Count 372 (150-400) K/uL MPV 10.70 (7.40-12.00) fL Neut % (Auto) 57.0 (48.0-80.0) % Lymph % (Auto) 30.3 (16.0-40.0) % [place] % (Auto) 6.9 (0.0-15.0) % Eos % (Auto) 5.1 (0.0-7.0) % Baso % (Auto) 0.7 (0.0-1.5) % Neut # (Auto) 4.8 (1.4-5.7) K/uL Lymph # (Auto) 2.5 H (0.6-2.4) K/uL [place] # (Auto) 0.6 (0.0-0.8) K/uL Eos # (Auto) 0.4 (0.0-0.7) K/uL Baso # (Auto) 0.1 (0.0-0.1) K/uL Nucleated RBC % 0.0 /100WBC Nucleated RBCs # 0 K/uL Sodium 139 (136-145) mmol/L Potassium 3.9 (3.5-5.1) mmol/L Chloride 102 (98-107) mmol/L Carbon Dioxide 27.0 (21.0-32.0) mmol/L BUN 18 (7.0-18.0) mg/dL Creatinine 1.0 (0.6-1.0) mg/dL Est Cr Clr Drug Dosing 76.36 mL/min Estimated GFR (MDRD) > 60.0 ml/min Glucose 89 (74-106) mg/dL Calcium 9.0 (8.5-10.1) mg/dL Total Bilirubin 0.2 (0.2-1.0) mg/dL AST 21 (15-37) IU/L ALT 87 H (14-63) IU/L Alkaline Phosphatase 143 H (46-116) U/L Total Protein 8.2 (6.4-8.2) g/dL Albumin 3.7 (3.4-5.0) g/dL Globulin 4.5 H (2.6-4.0) g/dL Albumin/Globulin Ratio 0.8 L (0.9-1.6) Lipase 183 (73-393) U/L Urine Color YELLOW Urine Appearance CLOUDY Urine pH 5.5 (5.0-8.0) Ur Specific [place] 1.025 (1.001-1.035) Urine Protein TRACE H (NEGATIVE) mg/dL Urine Glucose (UA) NEGATIVE (NEGATIVE) mg/dL Urine Ketones NEGATIVE (NEGATIVE) mg/dL Urine Occult Blood LARGE H (NEGATIVE) Urine Nitrite NEGATIVE (NEGATIVE) Urine Bilirubin NEGATIVE (NEGATIVE) Urine Urobilinogen 0.2 (<2.0) EU/dL Ur Leukocyte Esterase LARGE H (NEGATIVE) Urine RBC TOO NUMEROUS TO CT H (0-2/HPF) Urine WBC 18-20 (0-5/HPF) Ur Epithelial Cells FEW (NONE-FEW) Urine Bacteria FEW (NEGATIVE) Urine Trichomonas PRESENT (NEGATIVE) Meds: Medications Discontinued Medications Generic Name Dose Route Start Last Admin Trade Name Freq PRN Reason Stop Dose Admin Hydromorphone HCl 1 mg 06/12/19 12:23 06/12/19 14:03 Dilaudid IVPUSH 06/12/19 12:24 Not Given ONETIME ONE Hydromorphone HCl 1 mg 06/12/19 13:50 06/12/19 14:00 Dilaudid IM 06/12/19 13:51 1 mg ONETIME ONE Administration Sodium Chloride 1,000 mls @ 1,000 mls/hr 06/12/19 12:24 06/12/19 14:03 Normal Saline IV 06/12/19 13:23 Not Given .Bolus ONE Ondansetron HCl 4 mg 06/12/19 12:23 06/12/19 14:03 Zofran IVPUSH 06/12/19 12:24 Not Given ONETIME ONE Ondansetron HCl 4 mg 06/12/19 13:50 06/12/19 14:02 Zofran Odt PO 06/12/19 13:51 4 mg ONETIME ONE Administration Departure - Departure Time of Disposition: 16:43 Disposition: Home, Self-Care 01 Condition: Good Clinical Impression: Abdominal pain, UTI (urinary tract infection), Trichomonas infection - Discharge Information *PRESCRIPTION DRUG MONITORING PROGRAM REVIEWED*: Not Applicable *COPY OF PRESCRIPTION DRUG MONITORING REPORT IN PATIENT CELINA: Not Applicable Prescriptions: metroNIDAZOLE [Flagyl] 500 mg PO Q12H 7 Days #14 tab Sulfamethoxazole/Trimethoprim [Bactrim Ds Tablet] 1 each PO BID #6 tablet Instructions: Urinary Tract Infection, Adult, [id number], Abdominal Pain, Adult, [id number], Trichomoniasis Referrals: Mana Babcock MIXER CRANE OPERATOR [Primary Care Provider] - 2 Days Forms: ED Department Discharge Additional Instructions: The following information is given to patients seen in the emergency department who are being discharged to home. This information is to outline your options for follow-up care. We provide all patients seen in our emergency department with a follow-up referral. The need for follow-up, as well as the timing and circumstances, are variable depending upon the specifics of your emergency department visit. If you don't have a primary care physician on staff, we will provide you with a referral. We always advise you to contact your personal physician following an emergency department visit to inform them of the circumstance of the visit and for follow-up with them and/or the need for any referrals to a consulting specialist. The emergency department will also refer you to a specialist when appropriate. This referral assures that you have the opportunity for follow-up care with a specialist. All of these measure are taken in an effort to provide you with optimal care, which includes your follow-up. Under all circumstances we always encourage you to contact your private physician who remains a resource for coordinating your care. When calling for follow-up care, please make the office aware that this follow-up is from your recent emergency room visit. If for any reason you are refused follow-up, please contact the [facility] Emergency Department at and asked to speak to the emergency department charge nurse. Sepsis Event Note - Evaluation Sepsis Screening Result: No Definite Risk - Focused Exam Vital Signs: Vital Signs Temp Pulse Resp BP Pulse Ox 06/12/19 15:17 96.6 F L 79 16 133/72 96 06/12/19 12:11 97.3 F 114 H 18 139/79 98 Date Exam was Performed: 06/12/19 Time Exam was Performed: 17:11 - My Orders Last 24 Hours: My Active Orders 06/12/19 12:43 CULTURE URINE [RM] Stat - Assessment/Plan Last 24 Hours: My Active Orders 06/12/19 12:43 CULTURE URINE [RM] Stat
[2019-06-12 13:06] LABS: BLOOD UREA NITROGEN,BUN 18 mg/dL (7.0-18.0); CHLORIDE,CL 102 mmol/L (98-107); GLUCOSE RANDOM 89 mg/dL (74-106); LIPASE 183 U/L (73-393); POTASSIUM,K 3.9 mmol/L (3.5-5.1); SODIUM,NA 139 mmol/L (136-145)
[2019-06-12] MEDS ORDERED: Ondansetron 4 MG Tab.DIS PO ONE (13:50)
[2019-06-12] MEDS ORDERED: HYDROmorphone 1 MG/ML Syringe IM ONE (13:50)
--- NOTE | 2019-06-12 14:00 | PCM.PRNOTE ---
- Free Text/Narrative Note: Anes Note I was called to ER for IV access on this patient with known history of difficult IV access. I was not able to place an IV on this patient. Time with patient [id number] Seth Cruz FIXER SUPERVISOR
--- NOTE | 2019-06-12 14:33 | CT ---
CT abdomen and pelvis Technique: Multiple axial sections were obtained from above the dome of the diaphragm inferiorly through the pubic symphysis. Intravenous and oral contrast not utilized. Comparison: Previous CT abdomen and pelvis study of 06/03/19. Findings: Prior abdominal surgery is noted with abdominal wall scarring noted. Trace left-sided pleural effusion and trace right-sided pleural effusion is noted. Slight linear areas of increased density are noted within both lung bases which is felt compatible with small areas of scarring. Noncontrast appearance of the liver shows no gross abnormality. Liver is slightly generous in size. Spleen appears within normal limits. Kidneys show no discrete hydronephrosis or abnormal calcifications. Adrenal glands show no nodule. Small hiatal hernia is noted. Pancreas is not well seen due to adjacent unopacified bowel. No gross abnormality within the pancreas is seen. Surgical clips are noted from prior cholecystectomy. Aorta shows no aneurysm. No retroperitoneal adenopathy is seen. Increased stool is noted throughout the colon. Soft tissue mass is noted within the pelvis to the left of midline. Finding is most likely due to an enlarged uterus. No additional pelvic abnormality is appreciated. Bone window settings were reviewed which appear within normal limits for the patient's age. Impression: 1. Somewhat limited study without IV and oral contrast. 2. Trace pleural effusions are seen on both sides of the chest. Linear areas of presumed scarring within both lung bases. 3. Liver generous in size without discrete parenchymal abnormality. 4. Previous abdominal surgery with scarring of the abdominal wall. 5. Soft tissue mass within the pelvis to the left side most likely due to enlarged uterus. Pelvic ultrasound could be obtained to confirm. 6. Other findings as noted above. Nothing acute is otherwise appreciated. Diagnostic code #3 This report was dictated in MDT
--- NOTE | 2019-06-12 16:21 | US ---
Limited abdominal ultrasound: Multiple real-time images were obtained of the abdominal wall. 3 small hypoechoic areas are identified to the left of an abdominal wall incision measuring 1.9 x 0.6 x 0.6 cm, 1.6 x 1.1 x 1.5 cm and 1.8 x 0.4 x 0.4 cm. 2 small hypoechoic areas to the right of abdominal wall incision are seen measuring 2.3 x 1.4 x 2.3 cm and 1.2 x 0.3 x 0.9 cm Impression: 1. Small hypoechoic areas as noted above. Findings most likely due to small benign areas of fluid. If patient has symptoms to suggest infection, any 1 of these could represent an abscess. Diagnostic code #3 This report was dictated in MDT
== END 2019-06-12 17:00 | disposition home or self-care (01) ==
LOC: MW.ED 11:59
DX: N39.0 Urinary tract infection, site not specified (principal); A59.9 Trichomoniasis, unspecified; Z88.6 Allergy status to analgesic agent; Z79.899 Other long term (current) drug therapy
CPT/HCPCS: 36415; 74176; 76705; 80053; 81001; 83690; 85025; 87086; 96372; 99284; A9270; J1170

== ENCOUNTER 2019-06-14 10:52 | Emergency (ER) | payer OTHER | END 2019-06-14 11:15 | disposition left against medical advice (07) | LOC: MW.ED 10:52 | DX: Z53.21 Procedure and treatment not carried out due to patient leaving prior to being seen by health care provider (principal) ==

== ENCOUNTER 2019-06-17 20:57 | Emergency (ER) | payer OTHER ==
--- NOTE | 2019-06-17 21:38 | EDM.PDOC ---
ED HPI GENERAL MEDICAL PROBLEM - General Chief Complaint: Wound Recheck Stated Complaint: NEED STICHES Time Seen by Provider: 06/17/19 21:30 - History of Present Illness INITIAL COMMENTS - FREE TEXT/NARRATIVE: 33-year-old female history of ovarian tumor removal 2 weeks ago, presenting to ER because she feels like the incision from the surgery might be . Denies past denies fever denies pain. Denies abdominal pain. Denies any other complaints. abdominal pain Pain Score (Numeric/FACES): 3 - Related Data Allergies Allergy/AdvReac Type Severity Reaction Status Date / Time acetaminophen [From Tylenol] Allergy Anaphylactic Verified 06/17/19 21:07 Shock Home Meds: Home Meds Sulfamethoxazole/Trimethoprim [Bactrim Ds Tablet] 1 each PO BID #6 tablet [Rx] metroNIDAZOLE [Flagyl] 500 mg PO Q12H 7 Days #14 tab 06/12/19 [Rx] Past Medical History - Past Health History Medical/Surgical History: Denies Medical/Surgical History HEENT History: Reports: None Cardiovascular History: Reports: None Respiratory History: Reports: None Gastrointestinal History: Reports: None Genitourinary History: Reports: None SUPERINTENDENT SALES History: Reports: None Musculoskeletal History: Reports: None Neurological History: Reports: None Psychiatric History: Reports: None Endocrine/Metabolic History: Reports: None Insulin Pump Model and Operations Clerk: N/A Hematologic History: Reports: None Immunologic History: Reports: None Oncologic (Cancer) History: Reports: None Dermatologic History: Reports: None - Infectious Disease History Infectious Disease History: Reports: None - Past Surgical History Head Surgeries/Procedures: Reports: None GI Surgical History: Reports: Cholecystectomy, Other (See Below) Other GI Surgeries/Procedures: Open abdomen sx - 10lb begnin tumor removed 2019 Female Surgical History: Reports: Section Social & Family History - Family History Family Medical History: Noncontributory - Tobacco Use Smoking Status *Q: Never Smoker - Caffeine Use Caffeine Use: Reports: None - Recreational Drug Use Recreational Drug Use: No ED ROS GENERAL - Review of Systems Review Of Systems: Comprehensive ROS is negative, except as noted in HPI. ED EXAM, SKIN/RASH Exam: See Below Exam Limited By: No Limitations General Appearance: Alert, WD/WN, No Apparent Distress Neck: Supple Respiratory/Chest: No Respiratory Distress GI/Abdominal: Soft, Non-Tender, Other (Patient has a well-healing midline incision, there is a small area where the edges do not approximate perfectly, there is scabbing already formed in the area, no significant fluctuance there is no significant erythema noted there is no significant induration and there is no significant tenderness to palpation). No: Guarding, Rigid, Rebound Course - Vital Signs Last Recorded V/S: Last Vital Signs Temp 97.4 F 06/17/19 21:08 Pulse 80 06/17/19 21:08 Resp 18 06/17/19 21:08 BP 128/56 L 06/17/19 21:08 Pulse Ox 98 06/17/19 21:08 - Re-Assessments/Exams Free Text/Narrative Re-Assessment/Exam: 06/17/19 21:40 Patient appears to be healing well. No signs of infection. Educated the patient on signs of infection. She will follow-up with the oncology team next Friday. Return precautions were discussed. Departure - Departure Time of Disposition: 21:42 Disposition: Home, Self-Care 01 Clinical Impression: Healing laceration - Discharge Information Instructions: Wound Care, Adult Referrals: PCP,None [Primary Care Provider] - Forms: ED Department Discharge Additional Instructions: Return to ED if you develop pain pus spreading redness abdominal pain fever or any concerns. The following information is given to patients seen in the emergency department who are being discharged to home. This information is to outline your options for follow-up care. We provide all patients seen in our emergency department with a follow-up referral. The need for follow-up, as well as the timing and circumstances, are variable depending upon the specifics of your emergency department visit. If you don't have a primary care physician on staff, we will provide you with a referral. We always advise you to contact your personal physician following an emergency department visit to inform them of the circumstance of the visit and for follow-up with them and/or the need for any referrals to a consulting specialist. The emergency department will also refer you to a specialist when appropriate. This referral assures that you have the opportunity for follow-up care with a specialist. All of these measure are taken in an effort to provide you with optimal care, which includes your follow-up. Under all circumstances we always encourage you to contact your private physician who remains a resource for coordinating your care. When calling for follow-up care, please make the office aware that this follow-up is from your recent emergency room visit. If for any reason you are refused follow-up, please contact the [facility] at and asked to speak to the emergency department charge nurse. Sepsis Event Note - Evaluation Sepsis Screening Result: No Definite Risk - Focused Exam Vital Signs: Vital Signs Temp Pulse Resp BP Pulse Ox 06/17/19 21:08 97.4 F 80 18 128/56 L 98 Date Exam was Performed: 06/17/19 Time Exam was Performed: 21:38
== END 2019-06-17 22:01 | disposition home or self-care (01) ==
LOC: MW.ED 20:57
DX: S31.119D Laceration without foreign body of abdominal wall, unspecified quadrant without penetration into peritoneal cavity, subsequent encounter (principal); Z88.8 Allergy status to other drugs, medicaments and biological substances; Z90.49 Acquired absence of other specified parts of digestive tract
CPT/HCPCS: 99282